=== PATIENT | female | born 1980 | race Two or more races ===

== ENCOUNTER 2025-01-24 06:40 | Day surgery (SDC) | payer MEDICAID, SELFPAY ==
[2025-01-23 14:14] VITALS: BMI 36.2
[2025-01-24] VITALS (12 sets, daily range): BP systolic 129–184; BP diastolic 82–114; PULSE 79–95; RESP 12–20; TEMP 36.3–36.4; O2SAT 94–99; BMI 36.8
[2025-01-24] MEDS: SODIUM CHLORIDE 0.9% 500 ML 500 ML 125 ML IV (07:20)
[2025-01-24] MEDS: DiphenhydrAMINE INJ 50 MG/ML VIAL 25 MG IV (07:28)
[2025-01-24] MEDS: SIMETHICONE 40 MG/0.6 ML ORAL SYRINGE PO (07:30)
[2025-01-24] MEDS: fentaNYL CIT INJ 50 mCg/ML AMP 2ML (ASD USE ONLY) IV (07:36)
[2025-01-24] MEDS: MIDAZOLAM INJ 1 MG/ML VIAL 2 ML (ASD USE ONLY) 2 MG IV (07:36)
--- NOTE | 2025-01-24 07:48 | SUR.PHASEII ---
Pt arrived to PACU, report received from EBONI CRUZ. Pt able to respond to verbal instructions and drifted back to sleep. No acute distress noted.
--- NOTE | 2025-01-24 08:07 | SUR.PHASEII ---
Pt more awake and drinking juice.
== END 2025-01-24 08:33 | disposition home or self-care (01) ==
PROVIDERS: PCP Family Medicine; Referring Provider Surgery; Visit Provider Surgery
PROC: 0DBE8ZX Excision of Large Intestine, Via Natural or Artificial Opening Endoscopic, Diagnostic (ICD-10-PCS; CPT 45380; principal; 2025-01-24 07:30)
DX: K64.1 Second degree hemorrhoids (principal); K57.31 Diverticulosis of large intestine without perforation or abscess with bleeding; D12.5 Benign neoplasm of sigmoid colon
CPT/HCPCS: 45380; 81025; A4649; J1200; J2250; J3010; J7040; A9270